=== PATIENT | male | born 2000 | race Caucasian/White ===

== ENCOUNTER 2021-12-10 11:29 | Emergency (ER) | payer OTHER ==
[2021-12-10] MEDS ORDERED: Ketorolac Tromethamine 30 MG/ML VIAL ONE (13:03)
[2021-12-10] MEDS ORDERED: Acetaminophen 500 MG TAB ONE (18:27)
== END 2021-12-10 18:33 | disposition home or self-care (01) ==
LOC: ERS 11:29
DX: S06.9X9A Unspecified intracranial injury with loss of consciousness of unspecified duration, initial encounter (principal); S42.032A Displaced fracture of lateral end of left clavicle, initial encounter for closed fracture; S01.312A Laceration without foreign body of left ear, initial encounter; R29.700 NIHSS score 0; V87.8XXA Person injured in other specified noncollision transport accidents involving motor vehicle (traffic), initial encounter
CPT/HCPCS: 70450; 96374; J1885